=== PATIENT | male | born 1985 | race Two or more races ===

== ENCOUNTER 2017-04-14 19:47 | Emergency (ER) | payer SELFPAY ==
[~2017-04-14] VITALS: Ht 190.5 cm; Wt 118.2 kg
[2017-04-14 19:50] VITALS: BP 156/95
== END 2017-04-14 23:30 | disposition left against medical advice (07) ==
LOC: ER 19:47
DX: Z53.21 Procedure and treatment not carried out due to patient leaving prior to being seen by health care provider (principal)

== ENCOUNTER 2017-04-16 12:29 | Emergency (ER) | payer MEDICAID, MEDICARE ==
[~2017-04-16] VITALS: Ht 190.5 cm; Wt 118.0 kg
[2017-04-16] MEDS ORDERED: ONDANSETRON HCL 4MG/2ML VIAL IV STA (17:51)
[2017-04-16] MEDS ORDERED: SODIUM CHLORIDE 0.9% 1,000 ML IV ONE (17:51)
[2017-04-16] MEDS ORDERED: ACETAMINOPHEN 500MG TABLET PO ONE (18:00)
[2017-04-16 18:30] LABS: BASOPHILS % 0.3 % (0.0-2.0); EOSINOPHILS % 1.2 % (0.0-5.0); LYMPHOCYTES % 40.9 % (20.0-50.0); MEAN CORPUSCULAR HEMOGLOBIN 31.7 pg (28.0-32.0); MEAN CORPUSCULAR VOLUME 90.6 fL (80.0-94.0); MEAN PLATELET VOLUME 7.8 fl (7.4-10.4); MONOCYTES % 6.9 % (2.0-8.0); NEUTROPHILS % 50.7 % (40.0-76.0); PLATELET 255 x1000/uL (130-400); RED BLOOD CELL COUNT 4.41 mill/uL (4.7-6.1); RED CELL DISTRIBUTION WIDTH 12.9 % (11.6-14.6)
[2017-04-16 18:35] LABS: CHLORIDE 103 mEq/L (98-107)
[2017-04-16 18:36] LABS: CARBON DIOXIDE 29 mEq/L (21-32)
[2017-04-16 18:40] LABS: ETHANOL BLOOD < 10 mg/dL
[2017-04-16 20:39] VITALS: BP 116/71
== END 2017-04-16 20:42 | disposition home or self-care (01) ==
LOC: ER 16:36
DX: M62.830 Muscle spasm of back (principal); R51 Headache; R11.0 Nausea; Z88.6 Allergy status to analgesic agent
CPT/HCPCS: 36415; 80053; 85025; 96361; 96374; 99284; G0482; J2405; J7030; Z7610